=== PATIENT | female | born 1945 ===

== ENCOUNTER 2021-03-18 18:29 | Observation (INO) | payer OTHER, MEDICARE ==
[2021-03-18] MEDS ORDERED: LORazepam 2 MG/ML VIAL ONE (19:48)
[2021-03-18 19:50] LABS: Absolute Lymphocytes (CBC) 1.4 K/uL (0.7-4.9); Basophils % 0.6 % (0-1.3); Hematocrit 35.9 % (36.0-45.0); Lymphocytes % 19.1 % (15.3-44.8); MPV 7.9 fL (7.6-11.3); RBC Red Blood Cell Count 4.03 M/uL (3.86-4.86)
[2021-03-18 19:51] LABS: Protime INR 0.94
[2021-03-18] MEDS ORDERED: TETANUS & DIPHTHERIA TOX,ADULT 0.5 ML VIAL ONE (19:59)
--- NOTE | 2021-03-18 20:13 | RAD REPORT ---
EXAM DESCRIPTION: CT - Head C Spine [place] Aguiar - 03/18/2021 7:50 pm CLINICAL HISTORY: Head and neck injury with chest and abdominal pain status post fall. Head and neck pain . TECHNIQUE: Computed axial tomography of the head and cervical spine was obtained Computed axial tomography of the chest, abdomen and pelvis was obtained. 100 cc Isovue-300 was given intravenously coronal and sagittal reconstruction was performed. All CT scans are performed using dose optimization technique as appropriate and may include automated exposure control or mA/KV adjustment according to patient size. COMPARISON: None FINDINGS: Some images are degraded by patient motion artifact An intracranial bleed is not seen. The ventricles are normal in caliber. An extra-axial fluid collect ion is not noted. A cervical fracture is not seen. No dislocation is seen. A mediastinal hematoma is not noted. A pleural effusion is not present. A lung contusion is not seen. The liver, spleen, pancreas, adrenals, kidneys and bladder do not demonstrate a traumatic injury IMPRESSION: 1. No acute intracranial abnormality is seen 2. A cervical fracture is not visualized. If the patient continues have symptoms to suggest intracran ial/spinal cord pathology then MRI would be recommended. 3. No traumatic injury involving the chest, abdomen or pelvis is seen.
--- NOTE | 2021-03-18 20:19 | RAD REPORT ---
EXAM DESCRIPTION: CT - Facial Bones W/ Mpr - 03/18/2021 8:03 pm CLINICAL HISTORY: Facial injury status post fall with facial pain COMPARISON: None TECHNIQUE: Computed axial tomography of the face was obtained. Coronal and sagittal reconstruction w as performed. All CT scans are performed using dose optimization technique as appropriate and may include automated exposure control or mA/KV adjustment according to patient size. FINDINGS: Nasal soft tissue swelling Lucency within the nasal bone probably a nondisplaced fracture A TMJ dislocation is not noted. The globes are intact. Fluid within the sinuses is not seen. Mild chronic sinusitis IMPRESSION: Nondisplaced fracture nasal bone
[2021-03-18 20:23] LABS: Urine Blood Negative (Negative); Urine Glucose Negative (Negative); Urine Protein Negative (Negative); Urine pH 5.5 (5.0-7.0)
[2021-03-18] MEDS ORDERED: NA CHLORIDE 0.9% 250 ML ONE (20:25)
[2021-03-18] MEDS ORDERED: KETAMINE HCL 500 MG/5 ML VIAL ONE (20:25)
[2021-03-18] MEDS ORDERED: LEVETIRACETAM 500 MG/5 ML VIAL IV ONE (20:26)
[2021-03-18 20:48] LABS: Barbiturates NEGATIVE (NEGATIVE); Benzodiazepines NEGATIVE (NEGATIVE); Cocaine NEGATIVE (NEGATIVE); METHAMPHETAM NEGATIVE (NEGATIVE); Methadone NEGATIVE (NEGATIVE); Opiates NEGATIVE (NEGATIVE); Phencyclidine NEGATIVE (NEGATIVE); THC Cannibis POSITIVE (NEGATIVE)
--- NOTE | 2021-03-18 20:58 | RAD REPORT ---
EXAM DESCRIPTION: RAD - Pelvis - 03/18/2021 8:51 pm CLINICAL HISTORY: Pelvic pain status post injury FINDINGS: No fracture or dislocation is seen. If the patient continues to have symptoms to suggest an occult fracture then MRI would be recommended
[2021-03-18 21:54] LABS: ALT/SGPT 17 U/L (12-78); AST/SGOT 11 U/L (15-37); Albumin 3.4 g/dL (3.4-5.0); Alkaline Phosphatase 84 U/L (45-117); BUN Blood Urea Nitrogen 20 mg/dL (7-18); Bicarbonate 26 mmol/L (21-32); Bilirubin Direct 0.1 mg/dL (0-0.2); Bilirubin Total 0.4 mg/dL (0.2-1.0); Glucose Level 182 mg/dL (74-106); Potassium 3.5 mmol/L (3.5-5.1); Protein, Total 6.5 g/dL (6.4-8.2); Sodium Level 136 mmol/L (136-145); Troponin (Emerg Dept Use Only) < 0.02 ng/mL (0.0-0.045)
[2021-03-18] MEDS ORDERED: DERMABOND SKIN ADHESIVE TOP ONE (22:02)
--- NOTE | 2021-03-18 22:20 | ER ---
Nurse's Notes [facility] Name: Yasmine Horton Age: 75 yrs Sex: Female : 1945 Arrival Date: 03/18/2021 Time: 18:51 Bed 20 Private MD: France Lopez Diagnosis: Altered Mental Status Presentation: 03/18 18:51 Chief complaint: EMS states: 75 yr. old, A \T\ O x 4, was in the bathroom when she fell, rb3 time on the floor is unknown. Has a laceration on the back of her head and on the bridge of her nose. Care prior to arrival: Placed on backboard. Mechanism of Injury: Fall unknown if the pt was on the toilet or standing. 18:51 Acuity: PABLO 3 rb3 18:51 Method Of Arrival: EMS: [facility] rb3 19:00 Trauma event details: Injury occurred in the [facility], Injury occurred: rr5 [facility] house Injury occurred: March 18, 2021. 19:30 Coronavirus screen: At this time, the client does not indicate any symptoms associated rr5 with coronavirus-19. Ebola Screen: Patient negative for fever greater than or equal to 101.5 degrees Fahrenheit, and additional compatible Ebola Virus Disease symptoms Patient denies exposure to infectious person. Patient denies travel to an Ebola-affected area in the 21 days before illness onset. Initial Sepsis Screen: Does the patient meet any 2 criteria? No. Patient's initial sepsis screen is negative. Does the patient have a suspected source of infection? No. Patient's initial sepsis screen is negative. Risk Assessment: Do you want to hurt yourself or someone else? Patient reports no desire to harm self or others. Onset of symptoms was March 18, 2021. Trauma Activation: Alert Physician: ED Physician; Name: dr. blank; Notified At: 19:00; Arrived At: 19:00 Physician: General Surgeon; Name: ; Notified At: 19:00; Arrived At: Physician: Radiology; Name: ; Notified At: 19:00; Arrived At: Physician: Respiratory; Name: ; Notified At: 19:00; Arrived At: Physician: Lab; Name: ; Notified At: 19:00; Arrived At: Historical: - Allergies: 19:34 Beta-Blockers (Beta-Adrenergic Blocking Agts); rr5 - Home Meds: 18:42 trazodone 100 mg Oral tab [Active]; meloxicam 15 mg oral tab 1 tab once daily [Active]; rb3 amlodipine 5 mg tab [Active]; omeprazole 20 mg Oral cpDR [Active]; estradiol 0.5 mg Oral tab [Active]; losartan 50 mg oral tab [Active]; methylprednisolone 4 mg Oral tab [Active]; gabapentin 600 mg oral tab [Active]; zolpidem 10 mg Oral tab [Active]; phenytoin sodium extended 100 mg oral cap [Active]; zonisamide 100 mg oral cap [Active]; desvenlafaxine 100 mg oral Tb24 [Active]; pranipexole 1 mg [Active]; glimepiride 1 mg Oral tab [Active]; hydrochlorothiazide 12.5 mg Oral cap [Active]; Myrbetriq 50 mg oral Tb24 [Active]; clonidine HCl 0.1 mg Oral tab [Active]; - PMHx: 19:40 Diabetes - NIDDM; rr5 - PSHx: 18:42 Cholecystectomy; Hysterectomy; left elbow; rb3 - Immunization history:: Adult Immunizations unknown, Last tetanus immunization: > 10 years ago. - Social history:: Smoking status: unknown. Screenin:51 Abuse screen: Denies threats or abuse. rb3 19:30 Nutritional screening: No deficits noted. Tuberculosis screening: No symptoms or risk rr5 factors identified. Fall Risk Fall in past 12 months (25 points). IV access (20 points). Gait- Impaired (20 pts.). Total King Fall Scale indicates High Risk Score (45 or more points). Fall prevention measures have been instituted. Side Rails Up X 2 Placed Close to Nursing Station Frequent Obs/Assessments Occuring Family Present and informed to notify staff if the need to leave the bedside As available patient and family educated on Fall Prevention Program and Strategies. Primary Survey: 18:51 NO uncontrolled hemorrhage observed. A: The patient is alert. Breathing/Chest: rb3 Respiratory pattern: regular, Respiratory effort: spontaneous, unlabored, Chest inspection: symmetrical rise and fall of the chest. Circulation: Pulses: palpable right dorsalis pedis artery and left dorsalis pedis artery. Skin color: pink, Skin temperature: warm. Disability Alert. Exposure/Environment: There is no evidence of uncontrolled external bleeding. Obvious injury(ies) are noted at this time: Laceration to the back of her head and on the bridge of her nose. 19:50 Reassessment Airway Airway Patent Oxygen No O2 Oral cavity Clear +Gag reflex Trachea rr5 Midline Breathing/Chest Respiratory pattern Regular Respiratory effort Spontaneous Unlabored Breath sounds Clear Chest inspection Symmetrical Circulation Pulses Palpable Temperature Warm Dry Disability Alert. Secondary Survey: 18:51 HEENT: Head Other laceration on the back of her head and bridge of nose. rb3 Gastrointestinal: No deficits noted. : No deficits noted. Musculoskeletal: pt. currently on a backboard. EMS reports that the pt had ROM on scene. Assessment: 18:51 General: Appears uncomfortable, Behavior is cooperative, anxious. Pain: Complains of rb3 pain in right ankle, bilateral hips Pain currently is 10 out of 10 on a pain scale. Neuro: Level of Consciousness is awake, alert, obeys commands, Oriented to person, place, time, situation. Cardiovascular: Patient's skin is warm and dry. Respiratory: Airway is patent Respiratory effort is even, unlabored, Respiratory pattern is regular, symmetrical. GI: No signs and/or symptoms were reported involving the gastrointestinal system. : No signs and/or symptoms were reported regarding the genitourinary system. Derm: laceration noted to the back of her head and on the bridge of her nose. Musculoskeletal: Range of motion: intact in all extremities, per EMS report. Injury Description: Laceration sustained to back of head. 19:50 Reassessment: Patient appears in no apparent distress at this time. unable to do xray rr5 patient keeps on moving , provider informed. 20:10 Reassessment: stiffening of extremities noted approximate 5-10 seconds. ED provider rr5 aware with order made and carried out, hooked to oxygen, placed on upright/ side lying position. 21:30 Reassessment: Patient appears in no apparent distress at this time. C spine cleared, C rr5 collar removed by provider. 22:15 Reassessment: Patient appears in no apparent distress at this time. hospitalist at rr5 bedside for admission. daughter number [phone] (Prashanth). 22:30 Reassessment: Patient appears in no apparent distress at this time. episodes of rr5 confusion and drowsiness on and off. 23:30 Reassessment: Patient appears in no apparent distress at this time. went to restroom rr5 able to walk with assistance, patient is drowsy unsteady gait noted. 03/19 01:00 Reassessment: supervisor dry paste and charge nurse informed needs to have a sitter, patient rr5 getting out on bed, cancelled the admission in 4th floor. Vital Signs: 03/18 18:51 BP 159 / 96; Pulse 96; Resp 20; Temp 97.8; Pulse Ox 96% ; Pain 10/10; rb3 20:00 BP 126 / 70; Pulse 86; Resp 20; Pulse Ox 100% ; rr5 21:00 BP 136 / 80; Pulse 89; Resp 17; Pulse Ox 97% ; rr5 22:00 BP 141 / 89; Pulse 90; Resp 16; Pulse Ox 98% ; rr5 23:00 BP 155 / 95; Pulse 105; Resp 19; Pulse Ox 99% ; rr5 23:52 BP 130 / 70; Pulse 90; Resp 19; Pulse Ox 98% ; rr5 03/19 01:00 BP 151 / 95; Pulse 85; Resp 17; Temp 97.8; Pulse Ox 98% ; rr5 01:25 Weight 90.72 kg; Height 5 ft. 6 in. (167.64 cm); rr5 10:01 BP 132 / 71 LA Supine (auto/); Pulse 77; Pulse Ox 93% on R/A; mb4 12:23 BP 147 / 85 Supine (auto/); Pulse 77; Pulse Ox 91% on R/A; mb4 01:25 Body Mass Index 32.28 (90.72 kg, 167.64 cm) rr5 [place] Coma Score: 03/18 18:51 Eye Response: spontaneous(4). Verbal Response: oriented(5). Motor Response: obeys rb3 commands(6). Total: 15. 20:00 Eye Response: spontaneous(4). Verbal Response: confused(4). Motor Response: obeys rr5 commands(6). Total: 14. 21:00 Eye Response: spontaneous(4). Verbal Response: confused(4). Motor Response: obeys rr5 commands(6). Total: 14. 22:00 Eye Response: spontaneous(4). Verbal Response: confused(4). Motor Response: obeys rr5 commands(6). Total: 14. 23:00 Eye Response: spontaneous(4). Verbal Response: oriented(5). Motor Response: obeys rr5 commands(6). Total: 15. 23:52 Eye Response: spontaneous(4). Verbal Response: confused(4). Motor Response: obeys rr5 commands(6). Total: 14. 03/19 01:00 Eye Response: spontaneous(4). Verbal Response: confused(4). Motor Response: obeys rr5 commands(6). Total: 14. Trauma Score (Adult): 03/18 18:51 Eye Response: spontaneous(1); Verbal Response: confused(1); Motor Response: obeys rr5 commands(2); Systolic BP: > 89 mm Hg(4); Respiratory Rate: 10 to 29 per min(4); Jose Ramon Score: 14; Trauma Score: 12 20:00 Eye Response: spontaneous(1); Verbal Response: confused(1); Motor Response: obeys rr5 commands(2); Systolic BP: > 89 mm Hg(4); Respiratory Rate: 10 to 29 per min(4); Jose Ramon Score: 14; Trauma Score: 12 21:00 Eye Response: spontaneous(1); Verbal Response: confused(1); Motor Response: obeys rr5 commands(2); Systolic BP: > 89 mm Hg(4); Respiratory Rate: 10 to 29 per min(4); Jose Ramon Score: 14; Trauma Score: 12 22:00 Eye Response: spontaneous(1); Verbal Response: confused(1); Motor Response: obeys rr5 commands(2); Systolic BP: > 89 mm Hg(4); Respiratory Rate: 10 to 29 per min(4); Jose Ramon Score: 14; Trauma Score: 12 23:00 Eye Response: spontaneous(1); Verbal Response: confused(1); Motor Response: obeys rr5 commands(2); Systolic BP: > 89 mm Hg(4); Respiratory Rate: 10 to 29 per min(4); [place] Score: 14; Trauma Score: 12 23:52 Eye Response: spontaneous(1); Verbal Response: confused(1); Motor Response: obeys rr5 commands(2); Systolic BP: > 89 mm Hg(4); Respiratory Rate: 10 to 29 per min(4); Jose Ramon Score: 14; Trauma Score: 12 03/19 01:00 Eye Response: spontaneous(1); Verbal Response: confused(1); Motor Response: obeys rr5 commands(2); Systolic BP: > 89 mm Hg(4); Respiratory Rate: 10 to 29 per min(4); Jose Ramon Score: 14; Trauma Score: 12 ED Course: 03/18 18:51 Patient arrived in ED. rb3 18:51 Patient has correct armband on for positive identification. Bed in low position. Call rb3 light in reach. Side rails up X2. 18:54 Triage completed. rb3 19:03 Vivek Blank MD is Attending Physician. mh7 19:21 Foreign Smith, RN is Primary Nurse. rr5 19:30 Arm band placed on right wrist. rr5 19:30 Inserted saline lock: 20 gauge in right forearm, using aseptic technique. Blood rr5 collected. 19:35 Thermoregulation: warm blanket given to patient. rr5 19:50 CT Traumagram (Head C Spine CAP W Con) In Process Unspecified. EDMS 19:50 CT Facial Bones W/O Con In Process Unspecified. EDMS 20:10 Seizure precautions initiated. rr5 20:10 metal mover on. Pulse ox on. NIBP on. rr5 20:15 Straight cath inserted, using sterile technique, 16 Fr. Specimen obtained. rr5 20:51 XRAY Pelvis In Process Unspecified. EDMS 20:52 EKG done, by ED staff, reviewed by Vivek Blank MD. rr5 22:13 Assist provider with chest tube insertion Assist provider with laceration repair on rr5 nose that was 2.5 cm. or less using Dermabond. Set up tray. Performed by Vivek Blank MD Patient tolerated well. 22:18 Ricki Vásquez DO is Hospitalizing Provider. [facility] 03/19 01:27 Patient admitted, IV remains in place. intact, No redness/swelling at site. rr5 01:29 Patient maintains SpO2 saturation greater than 95% on room air. rr5 02:57 France Lopez MD is Private Physician. es 08:18 Primary Nurse role handed off by Foreign Smith, LINDY eb 09:15 Assisted to bedside commode. Assisted with dressing. Repositioned patient. mb4 09:15 Noise minimized. Lights dimmed. Verbal reassurance given. Head of bed elevated. mb4 Notified primary nurse of vital signs. 09:53 Verbal reassurance given. mb4 11:24 Repeat lab(s) drawn. by me, sent to lab. IV blood return with difficulty. . Flushed mb4 right forearm with 5 ml normal saline. 12:47 Radha Phelps, RN is Primary Nurse. rb3 15:50 No provider procedures requiring assistance completed. IV discontinued, intact, rb3 bleeding controlled, No redness/swelling at site. Pressure dressing applied. 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 Exp: rr5 04/11/2022. Lot #: [id number]. } Route: IM; Site: right deltoid; 21:45 Follow up: Response: No adverse reaction rr5 Intake: 21:00 IV: 100ml; Total: 100ml. rr5 03/19 01:28 PO: 0ml; Total: 100ml. rr5 Outcome: 03/18 22:19 Decision to Hospitalize by Provider. [facility] 22:30 Patient's length of stay in the Emergency Department was greater than 2 hours. rr5 03/19 01:27 Admitted to ER Hold. Please see [facility] for further documentation. rr5 Condition: stable Instructed on the need for admit. 15:50 Discharged to home via wheelchair, with family. rb3 15:50 Condition: stable 15:50 Discharge instructions given to patient, Instructed on discharge instructions, follow up and referral plans. medication usage, Demonstrated understanding of instructions, follow-up care, medications, Prescriptions given X 2. 16:03 Patient left the ED. Signatures: Dispatcher [employer] EDTea Patton Heather, RN RN Amber Wells Mackenzie mb4 Foreign Smith RN RN rr5 Vivek Blank MD MD [facility] Radha Phelps RN RN rb3 Corrections: (The following items were deleted from the chart) 03/18 18:51 [place] Score=15, Trauma Score=12, rb3 rr5 03/19 01:03/18 23:52 GCS: 15, rr5 rr5 03/19 01:03/18 23:52 Jose Ramon Score=15, Trauma Score=12, rr5 rr5 03/19 01:03/18 23:00 Jose Ramon Score=15, Trauma Score=12, rr5 rr5 03/19 01:03/18 22:00 Jose Ramon Score=15, Trauma Score=12, rr5 rr5 03/19 01:03/18 22:00 GCS: 15, rr5 rr5 03/19 01:03/18 21:00 Jose Ramon Score=15, Trauma Score=12, rr5 rr5 03/19 01:03/18 21:00 GCS: 15, rr5 rr5 03/19 01:03/18 20:00 Jose Ramon Score=15, Trauma Score=12, rr5 rr5 03/19 01:03/18 20:00 GCS: 15, rr5 rr5 03/19 11:28 11:24 Initial lab(s) drawn, by me, sent to lab. mb4 mb4
--- NOTE | 2021-03-18 22:20 | EDPHYS ---
Physician Documentation [facility] Name: Yasmine Horton Age: 75 yrs Sex: Female : 1945 Arrival Date: 03/18/2021 Time: 18:51 Bed 20 Private MD: France Lopez ED Physician Vivek Blank HPI: 03/18 19:58 This 75 yrs old Female presents to ER via EMS with complaints of Fall Injury. [facility] 19:58 Details of fall: The patient fell from an upright position, while walking. Onset: The [facility] symptoms/episode began/occurred just prior to arrival, today. Associated injuries: The patient sustained injury to the head, contusion, laceration, of the nose, pain, injury to the low back, pain, right hip, painful injury, right foot, painful injury. Severity of symptoms: At their worst the symptoms were moderate, earlier today, in the emergency department the symptoms have improved, moderately. Historical: - Allergies: 19:34 Beta-Blockers (Beta-Adrenergic Blocking Agts); rr5 - Home Meds: 18:42 trazodone 100 mg Oral tab [Active]; meloxicam 15 mg oral tab 1 tab once daily [Active]; rb3 amlodipine 5 mg tab [Active]; omeprazole 20 mg Oral cpDR [Active]; estradiol 0.5 mg Oral tab [Active]; losartan 50 mg oral tab [Active]; methylprednisolone 4 mg Oral tab [Active]; gabapentin 600 mg oral tab [Active]; zolpidem 10 mg Oral tab [Active]; phenytoin sodium extended 100 mg oral cap [Active]; zonisamide 100 mg oral cap [Active]; desvenlafaxine 100 mg oral Tb24 [Active]; pranipexole 1 mg [Active]; glimepiride 1 mg Oral tab [Active]; hydrochlorothiazide 12.5 mg Oral cap [Active]; Myrbetriq 50 mg oral Tb24 [Active]; clonidine HCl 0.1 mg Oral tab [Active]; - PMHx: 19:40 Diabetes - NIDDM; rr5 - PSHx: 18:42 Cholecystectomy; Hysterectomy; left elbow; rb3 - Immunization history:: Adult Immunizations unknown, Last tetanus immunization: > 10 years ago. - Social history:: Smoking status: unknown. ROS: 19:58 Constitutional: Negative for fever, chills, and weight loss, Eyes: Negative for injury, mh7 pain, redness, and discharge, Neck: Negative for injury, pain, and swelling, Cardiovascular: Negative for chest pain, palpitations, and edema, Respiratory: Negative for shortness of breath, cough, wheezing, and pleuritic chest pain, Abdomen/GI: Negative for abdominal pain, nausea, vomiting, diarrhea, and constipation, : Negative for injury, bleeding, discharge, and swelling, Psych: Negative for depression, anxiety, suicide ideation, homicidal ideation, and hallucinations, Allergy/Immunology: Negative for hives, rash, and allergies, Endocrine: Negative for neck swelling, polydipsia, polyuria, polyphagia, and marked weight changes, Hematologic/Lymphatic: Negative for swollen nodes, abnormal bleeding, and unusual bruising. Exam: 19:58 Eyes: Pupils equal round and reactive to light, extra-ocular motions intact. Lids and mh7 lashes normal. Conjunctiva and sclera are non-icteric and not injected. Cornea within normal limits. Periorbital areas with no swelling, redness, or edema. ENT: Nares patent. No nasal discharge, no septal abnormalities noted. Tympanic membranes are normal and external auditory canals are clear. Oropharynx with no redness, swelling, or masses, exudates, or evidence of obstruction, uvula midline. Mucous membranes moist. Neck: Trachea midline, no thyromegaly or masses palpated, and no cervical lymphadenopathy. Supple, full range of motion without nuchal rigidity, or vertebral point tenderness. No Meningismus. Chest/axilla: Normal chest wall appearance and motion. Nontender with no deformity. No lesions are appreciated. Cardiovascular: Regular rate and rhythm with a normal S1 and S2. No gallops, murmurs, or rubs. Normal PMI, no JVD. No pulse deficits. Respiratory: Lungs have equal breath sounds bilaterally, clear to auscultation and percussion. No rales, rhonchi or wheezes noted. No increased work of breathing, no retractions or nasal flaring. Abdomen/GI: Soft, non-tender, with normal bowel sounds. No distension or tympany. No guarding or rebound. No evidence of tenderness throughout. 19:58 Psych: Awake, alert, with orientation to person, place and time. Behavior, mood, and affect are within normal limits. 19:58 Constitutional: The patient appears in no acute distress, alert, awake, anxious. 19:58 Head/face: Noted is a laceration(s), that is superficial, of the nose. 19:58 Back: pain, that is mild, of the lumbar area, normal spinal alignment noted, CVA tenderness, is absent, vertebral tenderness, is appreciated at lumbar, muscle spasm, is not present. 19:58 Musculoskeletal/extremity: Extremities: noted in the right hip: pain, tenderness, ROM: intact in all extremities, Circulation is intact in all extremities. Sensation intact. Compartment Syndrome exam of affected extremity: is normal. no numbness, no tingling, no sensation deficit, no palor, no weak pulses, Joints: the right hip displays pain at rest, tenderness, Tendon exam: specific tendon testing normal through active and passive range of motion 19:58 Skin: 19:58 Neuro: Orientation: is normal, Mentation: is normal, Memory: is normal, Cranial nerves: grossly normal, Cerebellar function: is grossly normal, Motor: is normal, Sensation: is normal, Gait: not tested. seizure activity, grand mal type is displayed, brief. Vital Signs: 18:51 BP 159 / 96; Pulse 96; Resp 20; Temp 97.8; Pulse Ox 96% ; Pain 10/10; rb3 20:00 BP 126 / 70; Pulse 86; Resp 20; Pulse Ox 100% ; rr5 21:00 BP 136 / 80; Pulse 89; Resp 17; Pulse Ox 97% ; rr5 22:00 BP 141 / 89; Pulse 90; Resp 16; Pulse Ox 98% ; rr5 23:00 BP 155 / 95; Pulse 105; Resp 19; Pulse Ox 99% ; rr5 23:52 BP 130 / 70; Pulse 90; Resp 19; Pulse Ox 98% ; rr5 05/30 01:00 BP 151 / 95; Pulse 85; Resp 17; Temp 97.8; Pulse Ox 98% ; rr5 01:25 Weight 90.72 kg; Height 5 ft. 6 in. (167.64 cm); rr5 10:01 BP 132 / 71 LA Supine (auto/); Pulse 77; Pulse Ox 93% on R/A; mb4 12:23 BP 147 / 85 Supine (auto/); Pulse 77; Pulse Ox 91% on R/A; mb4 01:25 Body Mass Index 32.28 (90.72 kg, 167.64 cm) rr5 Austin Coma Score: 03/18 18:51 Eye Response: spontaneous(4). Verbal Response: oriented(5). Motor Response: obeys rb3 commands(6). Total: 15. 20:00 Eye Response: spontaneous(4). Verbal Response: confused(4). Motor Response: obeys rr5 commands(6). Total: 14. 21:00 Eye Response: spontaneous(4). Verbal Response: confused(4). Motor Response: obeys rr5 commands(6). Total: 14. 22:00 Eye Response: spontaneous(4). Verbal Response: confused(4). Motor Response: obeys rr5 commands(6). Total: 14. 23:00 Eye Response: spontaneous(4). Verbal Response: oriented(5). Motor Response: obeys rr5 commands(6). Total: 15. 23:52 Eye Response: spontaneous(4). Verbal Response: confused(4). Motor Response: obeys rr5 commands(6). Total: 14. 03/19 01:00 Eye Response: spontaneous(4). Verbal Response: confused(4). Motor Response: obeys rr5 commands(6). Total: 14. Trauma Score (Adult): 03/18 18:51 Eye Response: spontaneous(1); Verbal Response: confused(1); Motor Response: obeys rr5 commands(2); Systolic BP: > 89 mm Hg(4); Respiratory Rate: 10 to 29 per min(4); Jose Ramon Score: 14; Trauma Score: 12 20:00 Eye Response: spontaneous(1); Verbal Response: confused(1); Motor Response: obeys rr5 commands(2); Systolic BP: > 89 mm Hg(4); Respiratory Rate: 10 to 29 per min(4); Austin Score: 14; Trauma Score: 12 21:00 Eye Response: spontaneous(1); Verbal Response: confused(1); Motor Response: obeys rr5 commands(2); Systolic BP: > 89 mm Hg(4); Respiratory Rate: 10 to 29 per min(4); Jose Ramon Score: 14; Trauma Score: 12 22:00 Eye Response: spontaneous(1); Verbal Response: confused(1); Motor Response: obeys rr5 commands(2); Systolic BP: > 89 mm Hg(4); Respiratory Rate: 10 to 29 per min(4); Austin Score: 14; Trauma Score: 12 23:00 Eye Response: spontaneous(1); Verbal Response: confused(1); Motor Response: obeys rr5 commands(2); Systolic BP: > 89 mm Hg(4); Respiratory Rate: 10 to 29 per min(4); Jose Ramon Score: 14; Trauma Score: 12 23:52 Eye Response: spontaneous(1); Verbal Response: confused(1); Motor Response: obeys rr5 commands(2); Systolic BP: > 89 mm Hg(4); Respiratory Rate: 10 to 29 per min(4); Austin Score: 14; Trauma Score: 12 03/19 01:00 Eye Response: spontaneous(1); Verbal Response: confused(1); Motor Response: obeys rr5 commands(2); Systolic BP: > 89 mm Hg(4); Respiratory Rate: 10 to 29 per min(4); Austin Score: 14; Trauma Score: 12 MDM: 03/18 22:17 Differential diagnosis: abrasion, closed head injury, contusion, fracture, laceration, mh7 Seizure, Syncope, Altered Mental Status. Data reviewed: vital signs, nurses notes, EMS record, lab test result(s), cardiac enzymes, CBC, drug level(s), electrolytes, urinalysis, urine drug screen, EKG, radiologic studies, CT scan, plain films. Data interpreted: Pulse oximetry: on room air is 96 %. Interpretation: normal. Counseling: I had a detailed discussion with the patient and/or guardian regarding: the historical points, exam findings, and any diagnostic results supporting the discharge/admit diagnosis, the presence of at least one elevated blood pressure reading (>120/80) during this emergency department visit, lab results, radiology results, the need for further work-up and treatment in the hospital. Response to treatment: the patient's symptoms have mildly improved after treatment. 22:19 Patient medically screened. [facility] 03/18 19:21 Order name: Basic Metabolic Panel; Complete Time: 22:08 [facility] 03/18 19:21 Order name: CBC with Diff; Complete Time: 20:21 [facility] 03/18 19:21 Order name: Type And Screen; Complete Time: 20:59 [facility] 03/18 19:21 Order name: LFT's; Complete Time: 22:08 [facility] 03/18 19:21 Order name: Protime (+inr); Complete Time: 20:21 [facility] 03/18 19:21 Order name: Ptt, Activated; Complete Time: 20:21 [facility] 03/18 19:21 Order name: Troponin (emerg Dept Use Only); Complete Time: 22:08 [facility] 03/18 19:22 Order name: Acetaminophen; Complete Time: 22:08 [facility] 03/18 19:44 Order name: Glucose, Ancillary Testing [facility] 03/18 20:03 Order name: Dilantin; Complete Time: 20:59 [facility] 03/18 20:23 Order name: Urine Dipstick-Ancillary; Complete Time: 20:29 [facility] 03/18 20:23 Order name: UDS; Complete Time: 21:23 03/18 20:37 Order name: ETOH Level; Complete Time: 21:23 [facility] 03/18 19:21 Order name: XRAY Pelvis; Complete Time: 20:59 [facility] 03/18 21:54 Order name: AMMONIA [facility] 03/18 22:39 Order name: SARS-COV-2 RT PCR [facility] 03/19 05:00 Order name: CBC with Automated Diff [facility] 03/19 05:05 Order name: Hemoglobin A1c [facility] 03/19 05:08 Order name: Comprehensive Metabolic Panel [facility] 03/19 05:09 Order name: Troponin I [facility] 03/19 05:09 Order name: Lipid Profile [facility] 03/19 05:09 Order name: T4 Free [facility] 03/19 05:09 Order name: Magnesium [facility] 03/19 05:09 Order name: Thyroid Stimulating Hormone [facility] 03/19 05:30 Order name: ABO/RH no charge [facility] 03/19 07:41 Order name: Glucose, Ancillary Testing [facility] 03/19 11:50 Order name: Troponin I [facility] 03/19 12:34 Order name: Glucose, Ancillary Testing [facility] 03/18 19:21 Order name: CT Traumagram (Head C Spine CAP W Con); Complete Time: 20:21 [facility] 03/18 19:21 Order name: Labs collected and sent; Complete Time: 20:22 [facility] 03/18 19:21 Order name: EKG - Nurse/Tech; Complete Time: 23:47 [facility] 03/18 19:21 Order name: Urine Dipstick-Ancillary (obtain specimen); Complete Time: 23:47 [facility] 03/18 19:21 Order name: Hip Right 2 View XRAY [facility] 03/18 19:21 Order name: Foot Right 3 View XRAY [facility] 03/18 19:21 Order name: Femur Right XRAY [facility] 03/18 19:21 Order name: CT Facial Bones W/O Con; Complete Time: 20:21 [facility] 03/18 20:52 Order name: Straight Cath - Urine; Complete Time: 20:52 [facility] 03/18 22:03 Order name: Dermabond; Complete Time: 22:13 [facility] 03/18 22:03 Order name: Dressing - Wound; Complete Time: 22:13 [facility] 03/18 22:03 Order name: Gloves, Sterile; Complete Time: 22:13 [facility] 03/18 22:03 Order name: Setup Suture Tray; Complete Time: 22:13 rr5 Administered Medications: 19:32 Drug: Ativan (LORazepam) 0.5 mg Route: IVP; Site: right forearm; rr5 20:30 Follow up: Response: No adverse reaction rr5 20:10 Drug: Ativan (LORazepam) 1.5 mg Route: IVP; Site: right forearm; rr5 21:10 Follow up: Response: No adverse reaction rr5 20:25 Drug: Keppra (levETIRAcetam) 1000 mg Route: IV; Rate: calculated rate; Site: right rr5 forearm; 21:00 Follow up: Response: No adverse reaction; IV Status: Completed infusion; IV Intake: rr5 100ml 20:48 Drug: Tetanus-Diphtheria Toxoid Adult 0.5 ml {Offal Trimmer: [email or web address]. Exp: rr5 04/11/2022. Lot #: [id number]. } Route: IM; Site: right deltoid; 21:45 Follow up: Response: No adverse reaction rr5 Disposition: 03/18/21 22:19 Hospitalization ordered by Ricki Vásqeuz for Inpatient Admission. Preliminary diagnosis is Altered Mental Status. - Bed requested for [facility] ER HOLD. - Status is Inpatient Admission. hb - Condition is Stable. - Problem is new. - Symptoms have improved. Signatures: Dispatcher [employer] EDMS Jorge Reid, TOOL ROOM LATHE OPERATOR-C TOOL ROOM LATHE OPERATOR-Cla1 Grace De Souza, RN RN cg Jessica Quinn, LINDY ISRAEL Amber Wells Foreign Smith, LINYD RN rr5 Vivek Blank MD [facility]7 Radha Phelps, RN RN rb3 Corrections: (The following items were deleted from the chart) 20:19 20:12 Phenytoin (Dilantin) Level ordered. [facility] ED[facility] 21:59 21:42 CORONAVIRUS+MR.LAB.BRZ ordered. [facility] 03/19 00:25 03/18 22:19 Hospitalization Ordered by Ricki Vásquez DO for Inpatient Admission. Preliminary diagnosis is Altered Mental Status. Bed requested for Telemetry/MedSurg (Inpatient). Status is Inpatient Admission. Condition is Stable. Problem is new. Symptoms have improved. [facility] 03/19 00:42 00:25 03/18/2021 22:19 Hospitalization Ordered by Ricki Vásquez DO for Inpatient cg Admission. Preliminary diagnosis is Altered Mental Status. Bed requested for Telemetry/MedSurg (Inpatient). Status is Inpatient Admission. Condition is Stable. Problem is new. Symptoms have improved. 08:30 00:42 03/18/2021 22:19 Hospitalization Ordered by RickiTimoteo DONALD for Inpatient eb Admission. Preliminary diagnosis is Altered Mental Status. Bed requested for [facility] ER HOLD. Status is Inpatient Admission. Condition is Stable. Problem is new. Symptoms have improved. cg 09:16 08:30 03/18/2021 22:19 Hospitalization Ordered by Ricki Vásquez DO for Inpatient eb Admission. Preliminary diagnosis is Altered Mental Status. Bed requested for Telemetry/MedSurg (Inpatient). Status is Inpatient Admission. Condition is Stable. Problem is new. Symptoms have improved. eb 16:03 09:16 03/18/2021 22:19 Hospitalization Ordered by RickiTimoteo DONALD for Inpatient hb Admission. Preliminary diagnosis is Altered Mental Status. Bed requested for [facility] ER HOLD. Status is Inpatient Admission. Condition is Stable. Problem is new. Symptoms have improved. eb
--- NOTE | 2021-03-18 23:57 | P.HP ---
Certification for Inpatient Patient admitted to: Observation With expected LOS: <2 Midnights Patient will require the following post-hospital care: None Practitioner: I am a practitioner with admitting privileges, knowledge of patient current condition, hospital course, and medical plan of care. Services: Services provided to patient in accordance with Admission requirements found in Title 42 Section 412.3 of the Code of Federal Regulations Patient History Date of Service: 03/18/21 Primary Care Provider: Out of [facility] Reason for admission: Altered mental status History of Present Illness: 75-year-old female with history of seizure disorder, hypertension, diabetes, restless leg syndrome presents emergency department for unwitnessed fall. Patient is from [facility], visiting with family for family reunion, patient was normal getting in the car this morning but daughter reports that today she became more more not herself and had difficulty walking, appeared very uneasy on her feet. When patient got to the house she needed assistance getting to the bed, family told her to rest, about an hr and a half later when they went to check on her she is found on the bathroom floor groaning. EMS was called and patient was transferred to the emergency department, patient reportedly had some seizure-like activity with arm and leg stenting for about 10 seconds, patient was given Ativan. Daughter reports seizure history, patient prescribed Dilantin by her Dilantin level was 0, patient also tested positive for THC which daughter reports she has to take for restless leg syndrome but reportedly was not taking any more. CT head C-spine negative for any acute findings, labs unremarkable. Patient is still very drowsy after Ativan, daughter concerned that she is not acting herself throughout the day, ED provider wishes to admit under observation for altered mental status, possible seizure. 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 moist/pink Neck: Supple Respiratory: Clear to auscultation bilaterally Cardiovascular: No edema, Normal S1 S2 Capillary refill: <2 Seconds Gastrointestinal: Normal bowel sounds, No tenderness, No masses, No rebound, No guarding Musculoskeletal: No contractures, No erythema, No tenderness Integumentary: No tenderness/swelling, No erythema, No warmth Neurological: Other (Difficult to examine neurological a, patient is moving all 4 extremities, very drowsy/lethargic after receiving Ativan) - Studies Laboratory Data (last 24 hrs) 03/18/21 19:23: PT 10.8, INR 0.94, APTT 26.2 03/18/21 19:23: WBC 7.50, Hgb 12.4, Hct 35.9 L, Plt Count 259 03/18/21 19:23: Sodium 136, Potassium 3.5, BUN 20 H, Creatinine 0.81, Glucose 182 H, Total Bilirubin 0.4, AST 11 L, ALT 17, Alkaline Phosphatase 84 Assessment and Plan - Plan Assessment Unwitnessed fall/altered mental status Diabetes mellitus type 2 Hypertension Seizure disorder Restless leg syndrome Plan Unwitnessed fall/altered mental status: Patient is found the bathroom floor, unknown reason for fall, patient has been very unsteady on her feet throughout the day. Patient also had some seizure-like activity while in the emergency department, history of seizure disorder reportedly has not been taking her Dilantin, Dilantin level 0. Will restart home medications, consult Neurology, seizure precautions. Patient received 2 mg of Ativan while in the emergency department, at this time not able to do her neurological exam. Will minimize sedation throughout the evening so that an adequate exam can be performed. Patient lives at home with alone in [facility], daughter was present. Discuss case at length with daughter, patient likely benefit from additional assistance at home or even retirement when they get back home to [place], inform patient that this is not likely something we can arrange for but should be discussed with the primary care doctor upon return. DVT prophylaxis Lovenox 40 mg subcutaneous once daily. Diabetes mellitus type 2: A.c. HS Accu-Cheks, sliding scale insulin therapy. Hypertension: Obtain and continue home medications as appropriate. Seizure disorder: Obtain and continue home medications. Restless leg syndrome: Continue home medications keep sedation to minimum. Discharge Plan: Home Plan to discharge in: 24 Hours - Advance Directives Does patient have a Living Will: No Does patient have a Durable POA for Healthcare: No - Code Status/Comfort Care Code Status Assessed: Yes (Full code) Critical Care: No Time Spent Managing Pts Care (In Minutes): 55
[2021-03-19] MEDS ORDERED: ONDANSETRON 4 MG/2 ML VIAL IV PRN (01:22)
[2021-03-19] MEDS ORDERED: ACETAMINOPHEN 500 MG TAB PO PRN (01:22)
[2021-03-19 01:38] VITALS: BMI 32.3
[2021-03-19 04:55] LABS: Absolute Lymphocytes (CBC) 1.5 K/uL (0.7-4.9); Basophils % 0.6 % (0-1.3); Hematocrit 35.6 % (36.0-45.0); MPV 7.8 fL (7.6-11.3); RBC Red Blood Cell Count 4.01 M/uL (3.86-4.86)
[2021-03-19 05:08] LABS: ALT/SGPT 19 U/L (12-78); AST/SGOT 16 U/L (15-37); Albumin 3.3 g/dL (3.4-5.0); Alkaline Phosphatase 87 U/L (45-117); BUN Blood Urea Nitrogen 13 mg/dL (7-18); Bicarbonate 27 mmol/L (21-32); Bilirubin Total 0.5 mg/dL (0.2-1.0); Glucose Level 198 mg/dL (74-106); HDL Cholesterol 48 mg/dL (40-60); LDL Cholesterol, Calculated 112 (<130); Magnesium 2.3 mg/dL (1.8-2.4); Potassium 3.4 mmol/L (3.5-5.1); Protein, Total 6.1 g/dL (6.4-8.2); Sodium Level 139 mmol/L (136-145); Thyroid Stimulating Hormone 0.941 uIU/mL (0.360-3.740); Troponin I < 0.02 ng/mL (0.0-0.045)
[2021-03-19] MEDS ORDERED: POTASSIUM CL SA 10 MEQ TAB PO ONE ×2 (06:26→06:49)
[2021-03-19] MEDS: INSULIN -REGULAR HUMAN 50 UNIT/0.5 ML ML SQ SCH ×2 (07:30→11:30)
[2021-03-19] MEDS ORDERED: ACETAMINOPHEN 500 MG TAB ONE (07:53)
--- NOTE | 2021-03-19 08:54 | P.DS ---
Admission Date: 03/18/21 Discharge Date: 03/19/21 Primary Care Provider: Out of [facility] Disposition: ROUTINE DISCHARGE Discharge Condition: GOOD Reason for Admission: Altered mental status Consultations: Neurology(Phone consultation) Procedures: COVID: [Negative] Pelvic xray: CLINICAL HISTORY: Pelvic pain status post injury FINDINGS: No fracture or dislocation is seen. CT Scan Nasal region: FINDINGS: Nasal soft tissue swelling Lucency within the nasal bone probably a nondisplaced fracture A TMJ dislocation is not noted. The globes are intact. Fluid within the sinuses is not seen. Mild chronic sinusitis IMPRESSION: Nondisplaced fracture nasal bone CT Scan Head/Neck/Chest/Ab/Pelvis: COMPARISON: None FINDINGS: Some images are degraded by patient motion artifact An intracranial bleed is not seen. The ventricles are normal in caliber. An extra-axial fluid collection is not noted. A cervical fracture is not seen. No dislocation is seen. A mediastinal hematoma is not noted. A pleural effusion is not present. A lung contusion is not seen. The liver, spleen, pancreas, adrenals, kidneys and bladder do not demonstrate a traumatic injury IMPRESSION: 1. No acute intracranial abnormality is seen 2. A cervical fracture is not visualized. If the patient continues have symptoms to suggest intracranial/spinal cord pathology then MRI would be recommended. 3. No traumatic injury involving the chest, abdomen or pelvis is seen. Medical Problem List: Unwitnessed fall with altered mental status complicated with history of seizure disorder and noncompliance with medication Suspected nondisplaced fracture nasal bone Diabetes mellitus type 2 Hypertension GERD Depression Urinary incontinence DM Neuropathy Restless leg syndrome Brief History of Present Illness: 75-year-old female with history of seizure disorder, hypertension, diabetes, restless leg syndrome presents emergency department for unwitnessed fall. Patient is from [facility], visiting with family for family reunion, patient was normal getting in the car this morning but daughter reports that today she became more more not herself and had difficulty walking, appeared very uneasy on her feet. When patient got to the house she needed assistance getting to the bed, family told her to rest, about an hr and a half later when they went to check on her she is found on the bathroom floor groaning. EMS was called and patient was transferred to the emergency department, patient reportedly had some seizure-like activity with arm and leg stenting for about 10 seconds, patient was given Ativan. Daughter reports seizure history, patient prescribed Dilantin by her Dilantin level was 0, patient also tested positive for THC which daughter reports she has to take for restless leg syndrome but reportedly was not taking any more. CT head C-spine negative for any acute findings, labs unremarkable. CT nasal regions shows suspected nondisplaced nasal fracture. Patient was admitted for further observation Hospital Course: Patient presented with an unwitnessed fall and altered mental status. Patient is from [place] and visiting for a family reunion. Patient with history of seizure disorder but noncompliant. Patient was evaluated emergency room. CT head, neck, pelvis and chest were unremarkable for fracture. CT nasal region showed suspected nondisplaced nasal fracture. Patient has not been compliant with her Dilantin. Dilantin level subtherapeutic. Patient was positive for THC. Patient was started on Keppra. The patient was observed overnight. Case discussed at length with neurology. Patient has done well. No further seizures identified. At discharge neurology recommends to continue Keppra 500 mg 1 pill t wice daily. Discontinue Dilantin at this time. Patient will also go home with folic acid 1 mg daily. Patient will need to follow-up with her PCP within 1 week in [place]. Recommend to recheck Keppra level within 1 week. Patient will need neurology follow-up within 1 week as well. Seizure precautions to be continued. No driving, operating heavy machinery, swimming, or getting on any ladders. Education on seizures addressed in detail. Education on compliance with medication also provided. Prior to discharge I had a long discussion with the patient and family concerning compliance with her medication. Patient admitted that she is not taking her Dilantin. The plan will be to discontinue Dilantin and continue Keppra. I also recommended that she follow up with her neurologist later this week. I also counseled her extensively on THC cessation. Patient reported that she had use THC for her seizures. I told her specifically that she will need to get a prescription from her neurologist for medical marijuana if this is indicated. Patient understands. Physical therapy did work with the patient prior to discharge. They are recommending that the patient use a gait belt with assistance with family. Family was present when this was done. Patient also has a wheelchair that she uses. She will continue with this. Fall precaution in place. Compliance with current medications addressed in detail. As mentioned above patient with suspected nondisplaced fracture of the nasal bone. This can be monitored as an outpatient. Patient with history of diabetes mellitus type 2. Patient may resume her home medication-glimepiride 1 mg daily. Hold medication if blood sugar less than 100. Recommend to maintain blood sugars less than 140 fasting and less than 200 after meals. Further adjustment in medication may be required. This can be done with the help of her PCP. Recommend to recheck hemoglobin A1c every 3 months to monitor her progress. Recommend follow up with her PCP to further monitor and adjust medication. Patient with hypertension. At discharge patient will continue with her current medications-Norvasc 5 mg daily, clonidine 0.1 mg 3 times a day, losartan 50 mg 1 pill twice daily and hydrochlorothiazide 12.5 mg daily. Hold medication if blood pressure systolic less than 110. Recommend to maintain blood pressure less than 130/80. Further adjustment can be done by her PCP. Patient with restless leg syndrome. At discharge patient will continue with her current medication-Mirapex 1 mg 1 pill twice daily. Recommend follow up with neurology to further monitor and adjust medication. Patient with GERD. At discharge patient will continue with Prilosec daily.Recommend follow up with her PCP to further monitor and adjust medication. Patient with urinary incontinence. At discharge she will continue with Mybetriq daily.Recommend follow up with her PCP to further monitor and adjust medication. Patient with diabetic neuropathy. At discharge patient will continue with gabapentin 600 mg 3 times a day. Hold if with increase sedation. Patient also takes meloxicam. Recommend to discontinue meloxicam as this will increase risk for bleeding and GERD. Recommend follow up with her PCP to further monitor and adjust medication. Patient with depression. At discharge patient will continue with Desvenlafaxine 100 mg daily. Patient also takes trazodone 100 mg likely at bedtime. Recommend to hold trazodone if with increase sedation. Recommend follow up with her PCP to further monitor and adjust. Patient was positive for THC. THC education cessation provided. Vital Signs/Physical Exam: Temp Pulse Resp BP Pulse Ox 98 F 90 18 151/80 H 100 03/19/21 04:00 03/19/21 04:00 03/19/21 04:00 03/19/21 04:00 03/19/21 04:00 General: Alert, In no apparent distress, Oriented x3, Cooperative HEENT: Atraumatic Neck: Supple Respiratory: Clear to auscultation bilaterally, Normal air movement Cardiovascular: Normal pulses, Regular rate/rhythm Gastrointestinal: Normal bowel sounds, Soft and benign, Non-distended, No tenderness, No masses, No rebound, No guarding Musculoskeletal: No erythema, No tenderness, No warmth Integumentary: No tenderness/swelling Neurological: Normal speech, Normal strength at 5/5 x4 extr, Normal tone, Normal affect Laboratory Data at Discharge: WBC 8.00 K/uL (4.3-10.9) 03/19/21 04:25 Hgb 12.5 g/dL (12.0-15.0) 03/19/21 04:25 Hct 35.6 % (36.0-45.0) L 03/19/21 04:25 Plt Count 236 K/uL (152-406) 03/19/21 04:25 PT 10.8 SECONDS (9.5-12.5) 03/18/21 19:23 INR 0.94 03/18/21 19:23 APTT 26.2 SECONDS (24.3-36.9) 03/18/21 19:23 Sodium 139 mmol/L (136-145) 03/19/21 04:25 Potassium 3.4 mmol/L (3.5-5.1) L 03/19/21 04:25 BUN 13 mg/dL (7-18) 03/19/21 04:25 Creatinine 0.62 mg/dL (0.55-1.3) 03/19/21 04:25 Glucose 198 mg/dL (74-106) H 03/19/21 04:25 Magnesium 2.3 mg/dL (1.8-2.4) 03/19/21 04:25 Total Bilirubin 0.5 mg/dL (0.2-1.0) 03/19/21 04:25 AST 16 U/L (15-37) 03/19/21 04:25 ALT 19 U/L (12-78) 03/19/21 04:25 Alkaline Phosphatase 87 U/L (45-117) 03/19/21 04:25 Troponin I < 0.02 ng/mL (0.0-0.045) 03/19/21 04:25 Triglycerides 311 mg/dL (<150) H 03/19/21 04:25 Cholesterol 222 mg/dL (<200) H 03/19/21 04:25 HDL Cholesterol 48 mg/dL (40-60) 03/19/21 04:25 Cholesterol/HDL Ratio 4.63 03/19/21 04:25 Home Medications: Amlodipine [Norvasc*] 5 mg PO DAILY 03/19/21 Desvenlafaxine [Desvenlafaxine ER] 100 mg PO DAILY 03/19/21 Estradiol [Estrace] 0.5 tab PO BEDTIME 03/19/21 Folic Acid 1 mg PO DAILY #90 tablet 03/19/21 Gabapentin 600 mg PO TID* 03/19/21 Glimepiride 1 tab PO DAILY 03/19/21 Levetiracetam [Keppra] 500 mg PO BID #60 tablet 03/19/21 Losartan Potassium [Cozaar*] 50 mg PO BID 03/19/21 Mirabegron [Myrbetriq] 1 tab PO DAILY 03/19/21 Omeprazole 20 mg PO DAILY 03/19/21 Pramipexole [Mirapex*] 1 tab PO BID* 03/19/21 Trazodone [Desyrel*] 100 mg PO DAILY 03/19/21 cloNIDine HCL [Clonidine HCl] 1 tab PO Q8HR 03/19/21 hydroCHLOROthiazide [Hydrochlorothiazide*] 1 tab PO DAILY 03/19/21 New Medications: Folic Acid 1 mg PO DAILY #90 tablet Levetiracetam [Keppra] 500 mg PO BID #60 tablet Physician Discharge Instructions: Patient presented with an unwitnessed fall and altered mental status. Patient is from [place] and visiting for a family reunion. Patient with history of seizure disorder but noncompliant. Patient was evaluated emergency room. CT head, neck, pelvis and chest were unremarkable for fracture. CT nasal region showed suspected nondisplaced nasal fracture. Patient has not been compliant with her Dilantin. Dilantin level subtherapeutic. Patient was positive for THC. Patient was started on Keppra. The patient was observed overnight. Case discussed at length with neurology. Patient has done well. No further seizures identified. At discharge neurology recommends to continue Keppra 500 mg 1 pill twice daily. Discontinue Dilantin at this time. Patient will also go home with folic acid 1 mg daily. Patient will need to follow-up with her PCP within 1 week in [place]. Recommend to recheck Keppra level within 1 week. Patient will need neurology follow-up within 1 week as well. Seizure precautions to be continued. No driving, operating heavy machinery, swimming, or getting on any ladders. Education on seizures addressed in detail. Education on compliance with medication also provided. Prior to discharge I had a long discussion with the patient and family concerning compliance with her medication. Patient admitted that she is not taking her Dilantin. The plan will be to discontinue Dilantin and continue Keppra. I also recommended that she follow up with her neurologist later this week. I also counseled her extensively on THC cessation. Patient reported that she had use THC for her seizures. I told her specifically that she will need to get a prescription from her neurologist for medical marijuana if this is indicated. Patient understands. Physical therapy did work with the patient prior to discharge. They are recommending that the patient use a gait belt with assistance with family. Family was present when this was done. Patient also has a wheelchair that she uses. She will continue with this. Fall precaution in place. Compliance with current medications addressed in detail. As mentioned above patient with suspected nondisplaced fracture of the nasal bone. This can be monitored as an outpatient. Patient with history of diabetes mellitus type 2. Patient may resume her home medication-glimepiride 1 mg daily. Hold medication if blood sugar less than 100. Recommend to maintain blood sugars less than 140 fasting and less than 200 after meals. Further adjustment in medication may be required. This can be done with the help of her PCP. Recommend to recheck hemoglobin A1c every 3 months to monitor her progress. Recommend follow up with her PCP to further monitor and adjust medication. Patient with hypertension. At discharge patient will continue with her current medications-Norvasc 5 mg daily, clonidine 0.1 mg 3 times a day, losartan 50 mg 1 pill twice daily and hydrochlorothiazide 12.5 mg daily. Hold medication if blood pressure systolic less than 110. Recommend to maintain blood pressure less than 130/80. Further adjustment can be done by her PCP. Patient with restless leg syndrome. At discharge patient will continue with her current medication-Mirapex 1 mg 1 pill twice daily. Recommend follow up with neurology to further monitor and adjust medication. Patient with GERD. At discharge patient will continue with Prilosec daily.Recommend follow up with her PCP to further monitor and adjust medication. Patient with urinary incontinence. At discharge she will continue with Mybetriq daily.Recommend follow up with her PCP to further monitor and adjust medication. Patient with diabetic neuropathy. At discharge patient will continue with rose apentin 600 mg 3 times a day. Hold if with increase sedation. Patient also takes meloxicam. Recommend to discontinue meloxicam as this will increase risk for bleeding and GERD. Recommend follow up with her PCP to further monitor and adjust medication. Patient with depression. At discharge patient will continue with Desvenlafaxine 100 mg daily. Patient also takes trazodone 100 mg likely at bedtime. Recommend to hold trazodone if with increase sedation. Recommend follow up with her PCP to further monitor and adjust. Patient was positive for THC. THC education cessation provided. Diet: ADA Activity: Fall precautions Followup: NONE,NONE [Primary Care Provider] - Time spent managing pt's care (in minutes): 55
[2021-03-19] MEDS ORDERED: levETIRAcetam 500 MG in NA CHLORIDE 0.9% 100 ML IV SCH (09:00)
[2021-03-19] MEDS ORDERED: ENOXAPARIN 40 MG/0.4 ML SQ SCH (09:00)
[2021-03-19] MEDS ORDERED: ENOXAPARIN 40 MG/0.4 ML SQ ONE (10:10)
[2021-03-19 14:27] VITALS: BP 147/85; TEMP 98
[2021-03-19 16:45] VITALS: O2SAT 91
[2021-03-19] MEDS ORDERED: PRAMIPEXOLE 0.25 MG TAB PO SCH (21:00)
== END 2021-03-19 15:50 | disposition home or self-care (01) ==
LOC: ER 18:29 → ERHOLD 23:22
PROVIDERS: ADMIT Family Medicine; ATTEND Family Medicine
DX: R41.82 Altered mental status, unspecified (principal); G40.909 Epilepsy, unspecified, not intractable, without status epilepticus; Z91.14 Patient's other noncompliance with medication regimen; I10 Essential (primary) hypertension; K21.9 Gastro-esophageal reflux disease without esophagitis; F32.9 Major depressive disorder, single episode, unspecified; Z20.822 Contact with and (suspected) exposure to COVID-19; E11.40 Type 2 diabetes mellitus with diabetic neuropathy, unspecified; G25.81 Restless legs syndrome; Z79.84 Long term (current) use of oral hypoglycemic drugs; R32 Unspecified urinary incontinence; Z23 Encounter for immunization
CPT/HCPCS: 96365; 85025 ×2; 80048; 36415; 80320; 82140; 86900; 83735; 86850; 80329; 85610; 80061; 82565; 86901; 82947 ×3; 80076; 80307 ×8; 85730; 80185; 84443; 81003; 83036; 84484 ×3; 84439; 80053; 70450; 72125; 71260; 70486; 76377; 74177; 72170; 90471; 90714; 97116; 97161; 51702; 96375; 99285; U0003; Q9967; J1650; J1953 ×2; J7050; G0390

== ENCOUNTER 2021-03-20 04:57 | Emergency (ER) | payer OTHER, MEDICARE ==
[2021-03-20 07:10] LABS: Absolute Lymphocytes (CBC) 1.1 K/uL (0.7-4.9); Basophils % 0.6 % (0-1.3); Hematocrit 36.9 % (36.0-45.0); Lymphocytes % 16.9 % (15.3-44.8); MPV 7.4 fL (7.6-11.3); RBC Red Blood Cell Count 4.09 M/uL (3.86-4.86)
[2021-03-20] MEDS ORDERED: levETIRAcetam 1,000 MG in NA CHLORIDE 0.9% 100 ML IV ONE (08:00)
[2021-03-20 08:14] LABS: ALT/SGPT 20 U/L (12-78); AST/SGOT 16 U/L (15-37); Albumin 3.4 g/dL (3.4-5.0); Alkaline Phosphatase 92 U/L (45-117); BUN Blood Urea Nitrogen 12 mg/dL (7-18); Bicarbonate 26 mmol/L (21-32); Bilirubin Total 0.6 mg/dL (0.2-1.0); Glucose Level 187 mg/dL (74-106); Potassium 3.6 mmol/L (3.5-5.1); Protein, Total 6.7 g/dL (6.4-8.2); Sodium Level 140 mmol/L (136-145); Troponin (Emerg Dept Use Only) < 0.02 ng/mL (0.0-0.045)
--- NOTE | 2021-03-20 08:23 | ER ---
Nurse's Notes [facility] Name: Yasmine Horton Age: 75 yrs Sex: Female : 1945 Arrival Date: 03/20/2021 Time: 05:02 Bed 3 Private MD: Diagnosis: Epilepsy and recurrent seizures Presentation: 03/20 05:02 Chief complaint: EMS states: Toned out for unresponsive episode, upon arrival pt was ea alert, oriented and ambulatory. Pt denies hitting head reported she slid off the toilet, denied pain. Care prior to arrival: None. Mechanism of Injury: Fall toilet. Trauma event details: Injury occurred in the [facility], Injury occurred: at home. Injury occurred: March 20, 2021. 05:02 Acuity: PABLO 3 ea 05:02 Method Of Arrival: EMS: [facility] ea 05:09 Coronavirus screen: At this time, the client does not indicate any symptoms associated ea with coronavirus-19. Ebola Screen: No symptoms or risks identified at this time. Initial Sepsis Screen: Does the patient meet any 2 criteria? No. Patient's initial sepsis screen is negative. Does the patient have a suspected source of infection? No. Patient's initial sepsis screen is negative. Risk Assessment: Do you want to hurt yourself or someone else? Patient reports no desire to harm self or others. Trauma Activation: Alert Physician: ED Physician; Name: ; Notified At: ; Arrived At: Physician: General Surgeon; Name: ; Notified At: ; Arrived At: Physician: Radiology; Name: ; Notified At: ; Arrived At: Physician: Respiratory; Name: ; Notified At: ; Arrived At: Physician: Lab; Name: ; Notified At: ; Arrived At: Historical: - Allergies: 05:13 Beta-Blockers (Beta-Adrenergic Blocking Agts); ea - Home Meds: 05:13 zonisamide 100 mg Oral cap [Active]; meloxicam 15 mg Oral tab 1 tab once daily ea [Active]; methylprednisolone 4 mg Oral tab [Active]; amlodipine 5 mg tab [Active]; clonidine HCl 0.1 mg Oral tab [Active]; desvenlafaxine 100 mg Oral Tb24 [Active]; estradiol 0.5 mg Oral tab [Active]; gabapentin 600 mg Oral tab [Active]; glimepiride 1 mg Oral tab [Active]; hydrochlorothiazide 12.5 mg Oral cap [Active]; losartan 50 mg Oral tab [Active]; Myrbetriq 50 mg Oral Tb24 [Active]; omeprazole 20 mg Oral cpDR [Active]; phenytoin sodium extended 100 mg Oral cap [Active]; pranipexole 1 mg [Active]; trazodone 100 mg Oral tab [Active]; zolpidem 10 mg Oral tab [Active]; - PMHx: 05:13 Diabetes - NIDDM; ea - PSHx: 05:13 Hysterectomy; Cholecystectomy; left elbow; ea - Immunization history:: Adult Immunizations unknown. - Immunization history: Last tetanus immunization: unknown. - Social history:: Smoking status: unknown. - Family history:: not pertinent. - Hospitalizations: : The patient was recently seen at [facility]. Screenin:06 Abuse screen: Denies threats or abuse. Nutritional screening: No deficits noted. ea Tuberculosis screening: No symptoms or risk factors identified. Fall Risk None identified. Primary Survey: 05:07 NO uncontrolled hemorrhage observed. A: The patient is alert. Airway: patent. ea Breathing/Chest: Respiratory pattern: regular, Respiratory effort: spontaneous, unlabored. Circulation: Skin color: pink, Skin temperature: warm. Disability Alert. Exposure/Environment: No obvious injuries are noted at this time. 06:53 Reassessment Breathing/Chest Respiratory pattern Regular Respiratory effort Spontaneous ea Unlabored. Assessment: 05:13 General: Appears in no apparent distress. Behavior is calm, cooperative, appropriate ea for age. Pain: Denies pain. Neuro: Level of Consciousness is awake, alert, obeys commands, Oriented to person, place, time. Cardiovascular: Patient's skin is warm and dry. Respiratory: Airway is patent Respiratory effort is even, unlabored, Respiratory pattern is regular, symmetrical. Derm: Skin is pink, warm \T\ dry. 06:33 Reassessment: Patient and/or family updated on plan of care and expected duration. Pain ea level reassessed. Patient is alert, oriented x 3, equal unlabored respirations, skin warm/dry/pink. 07:00 Reassessment: RECD REPORT FROM [facility] [place]. 75YO WF S/P FALL. PT AOx4, NO APPARENT TRAUMA. bp 07:45 Reassessment: MEDS REQUESTED FROM PHARMACY. bp 08:50 Reassessment: Sister Heidi [phone] called for transportation. hb Vital Signs: 05:09 BP 159 / 97; Pulse 107; Resp 18; Temp 99.6; Pulse Ox 97% ; ea 07:30 BP 164 / 79; Pulse 96; Resp 16; Pulse Ox 95% ; bp [place] Coma Score: 05:07 Eye Response: spontaneous(4). Verbal Response: oriented(5). Motor Response: obeys ea commands(6). Total: 15. Trauma Score (Adult): 05:07 Eye Response: spontaneous(1); Verbal Response: oriented(1); Motor Response: obeys ea commands(2); Systolic BP: > 89 mm Hg(4); Respiratory Rate: 10 to 29 per min(4); Jose Ramon Score: 15; Trauma Score: 12 ED Course: 05:02 Patient arrived in ED. ea 05:04 Coleman Whitten MD is Attending Physician. tw4 05:06 Triage completed. ea 05:08 Patient maintains SpO2 saturation greater than 95% on room air. ea 05:08 Patient has correct armband on for positive identification. Placed in gown. Bed in low ea position. Call light in reach. Pulse ox on. NIBP on. 05:13 Thermoregulation: warm blanket given to patient. ea 05:13 Arm band placed on right wrist. Patient placed in an exam room, on a stretcher, on ea pulse oximetry. 06:49 Nigel Nesbitt RN is Primary Nurse. lp1 07:23 Attending Physician role handed off by Coleman Whitten MD rn 07:23 Luis Harrison MD is Attending Physician. rn 07:45 Inserted saline lock: 22 gauge in right forearm, using aseptic technique. Blood bp collected. 07:46 Antonio Kulkarni, LINDY is Primary Nurse. bp 08:50 No provider procedures requiring assistance completed. IV discontinued, intact, hb bleeding controlled, No redness/swelling at site. Administered Medications: 08:00 Drug: NS 0.9% 500 ml Route: IV; Rate: bolus; Site: right forearm; bp 08:57 Follow up: IV Status: Completed infusion; IV Intake: 500ml bp 08:00 Drug: Keppra (levETIRAcetam) 1000 mg Route: IV; Rate: calculated rate; Site: right bp forearm; 08:57 Follow up: IV Status: Completed infusion; IV Intake: 100ml bp Intake: 08:57 IV: 500ml; Total: 500ml. bp 08:57 IV: 100ml; Total: 600ml. bp Outcome: 08:23 Discharge ordered by . rn 08:50 Discharged to home ambulatory, with family. hb 08:50 Condition: stable 08:50 Discharge instructions given to patient, Instructed on discharge instructions, follow up and referral plans. medication usage, Demonstrated understanding of instructions, follow-up care, medications, Prescriptions given X 1. 11:01 Patient left the ED. ld1 Signatures: Luis Harrison MD MD rn Pena, Laura RN RN lp1 Jessica Quinn, RN RN Carin Norris, RN Antonio Conn ea, RN RN bp Coleman Whitten MD MD tw4 Mary Yanes, RN RN ld1
--- NOTE | 2021-03-20 08:23 | EDPHYS ---
Physician Documentation [facility] Name: Yasmine Horton Age: 75 yrs Sex: Female : 1945 Arrival Date: 03/20/2021 Time: 05:02 Bed 3 Private MD: ED Physician Luis Harrison HPI: 03/20 07:29 This 75 yrs old Unknown Female presents to ER via EMS with complaints of Fall Injury. rn 07:29 Details of fall: The patient fell from seated position. Onset: The symptoms/episode rn began/occurred just prior to arrival. Associated injuries: The patient sustained no obvious injury. Severity of symptoms: At their worst the symptoms were mild, in the emergency department the symptoms have improved. It is unknown whether or not the patient has had similar symptoms in the past. The patient has been recently seen by a physician: The patient has been recently been admitted at [facility]. Historical: - Allergies: 05:13 Beta-Blockers (Beta-Adrenergic Blocking Agts); ea - Home Meds: 05:13 zonisamide 100 mg Oral cap [Active]; meloxicam 15 mg Oral tab 1 tab once daily ea [Active]; methylprednisolone 4 mg Oral tab [Active]; amlodipine 5 mg tab [Active]; clonidine HCl 0.1 mg Oral tab [Active]; desvenlafaxine 100 mg Oral Tb24 [Active]; estradiol 0.5 mg Oral tab [Active]; gabapentin 600 mg Oral tab [Active]; glimepiride 1 mg Oral tab [Active]; hydrochlorothiazide 12.5 mg Oral cap [Active]; losartan 50 mg Oral tab [Active]; Myrbetriq 50 mg Oral Tb24 [Active]; omeprazole 20 mg Oral cpDR [Active]; phenytoin sodium extended 100 mg Oral cap [Active]; pranipexole 1 mg [Active]; trazodone 100 mg Oral tab [Active]; zolpidem 10 mg Oral tab [Active]; - PMHx: 05:13 Diabetes - NIDDM; ea - PSHx: 05:13 Hysterectomy; Cholecystectomy; left elbow; ea - Immunization history:: Adult Immunizations unknown. - Immunization history: Last tetanus immunization: unknown. - Social history:: Smoking status: unknown. - Family history:: not pertinent. - Hospitalizations: : The patient was recently seen at [facility]. ROS: 07:29 Constitutional: Negative for fever, chills, and weight loss, Eyes: Negative for injury, rn pain, redness, and discharge, ENT: Negative for injury, pain, and discharge, Neck: Negative for injury, pain, and swelling, Cardiovascular: Negative for chest pain, palpitations, and edema, Respiratory: Negative for shortness of breath, cough, wheezing, and pleuritic chest pain, Abdomen/GI: Negative for abdominal pain, nausea, vomiting, diarrhea, and constipation, Back: Negative for injury and pain, : Negative for injury, bleeding, discharge, and swelling, MS/Extremity: Negative for injury and deformity, Skin: Negative for injury, rash, and discoloration, Neuro: Negative for headache, weakness, numbness, tingling Exam: 07:29 Constitutional: This is a well developed, well nourished patient who is awake, alert, rn and in no acute distress. Head/Face: Normocephalic, atraumatic. Eyes: Pupils equal round and reactive to light, extra-ocular motions intact. Periorbital areas with no swelling, redness, or edema. ENT: dry MM Neck: Trachea midline, no masses palpated, and no cervical lymphadenopathy. Supple, full range of motion without nuchal rigidity, or vertebral point tenderness. No Meningismus. Cardiovascular: Regular rate and rhythm. No pulse deficits. Respiratory: No increased work of breathing, no retractions or nasal flaring. Abdomen/GI: soft, non-tender, no masses Skin: Warm, dry MS/ Extremity: Pulses equal, no cyanosis. Neurovascular intact. Full, normal range of motion. Equal circumference. Neuro: Awake and alert, GCS 15, oriented to person, place, time, and situation. Cranial nerves II-XII grossly intact. Motor strength 5/5 in all extremities. Sensory grossly intact. Vital Signs: 05:09 BP 159 / 97; Pulse 107; Resp 18; Temp 99.6; Pulse Ox 97% ; ea 07:30 BP 164 / 79; Pulse 96; Resp 16; Pulse Ox 95% ; bp Jose Ramon Coma Score: 05:07 Eye Response: spontaneous(4). Verbal Response: oriented(5). Motor Response: obeys ea commands(6). Total: 15. Trauma Score (Adult): 05:07 Eye Response: spontaneous(1); Verbal Response: oriented(1); Motor Response: obeys ea commands(2); Systolic BP: > 89 mm Hg(4); Respiratory Rate: 10 to 29 per min(4); [place] Score: 15; Trauma Score: 12 MDM: 05:39 Patient medically screened. tw 07:28 ED course: Signed out to me by Dr. Whitten, report is that patient had either seizure compliance administrator syncopal episode, is back to baseline, + recent admission for seizure, and patient denies any symptoms currently. Plan was to obtain cbc/bmp/trop, and if normal ok for discharge. . 08:21 Differential diagnosis: syncope, seizure. Data reviewed: vital signs, nurses notes, old rn medical records, lab test result(s), and as a result, I will discharge patient. Counseling: I had a detailed discussion with the patient and/or guardian regarding: the historical points, exam findings, and any diagnostic results supporting the discharge/admit diagnosis, lab results, the need for outpatient follow up, to return to the emergency department if symptoms worsen or persist or if there are any questions or concerns that arise at home. Response to treatment: the patient's condition has returned to base line, the patient is now symptom free, patient is well hydrated. and as a result, I will discharge patient. Special discussion: I discussed with the patient/guardian in detail that at this point there is no indication for admission to the hospital. It is understood, however, that if the symptoms persist or worsen the patient needs to return immediately for re-evaluation. Based on the history and exam findings, there is no indication for further emergent testing or inpatient evaluation. I discussed with the patient/guardian the need to see the neurologist for further evaluation of the symptoms. ED course: Pt is in middle of scheduling appt with neurology to figure out if she needs to be placed back on her keppra, told her likely given recent seizures. . 03/20 06:10 Order name: CBC with Diff; Complete Time: 07:21 ea 03/20 07:10 Order name: CMP; Complete Time: 08:16 03/20 07:11 Order name: Troponin (emerg Dept Use Only); Complete Time: 08:16 03/20 07:28 Order name: IV Start; Complete Time: 07:46 rn Administered Medications: 08:00 Drug: NS 0.9% 500 ml Route: IV; Rate: bolus; Site: right forearm; bp 08:57 Follow up: IV Status: Completed infusion; IV Intake: 500ml bp 08:00 Drug: Keppra (levETIRAcetam) 1000 mg Route: IV; Rate: calculated rate; Site: right bp forearm; 08:57 Follow up: IV Status: Completed infusion; IV Intake: 100ml bp Disposition: 03/20/21 08:23 Discharged to Home. Impression: Epilepsy and recurrent seizures. - Condition is Stable. - Discharge Instructions: Seizure, Adult. - Prescriptions for Keppra 750 mg Oral Tablet - take 1 tablet by ORAL route every 12 hours; 20 tablet. - Medication Reconciliation Form, Thank You Letter, Antibiotic Education, Prescription Opioid Use form. - Follow up: Private Physician; When: Upon discharge from the Emergency Department; Reason: Recheck today's complaints, Continuance of care, Re-evaluation by your physician. - Problem is new. - Symptoms have improved. Signatures: Dispatcher [employer] EDMS Luis Harrison MD MD rn Antunez, Elena, RN RN ea Peltier, Brian, RN RN bp Wadley, Terrence, MD MD tw4 Mary Yanes RN RN ld1 Corrections: (The following items were deleted from the chart) 07:30 07:29 Constitutional: Negative for fever, chills, and weight loss, Eyes: Negative for rn injury, pain, redness, and discharge, ENT: Negative for injury, pain, and discharge, Neck: Negative for injury, pain, and swelling, Cardiovascular: Negative for chest pain, palpitations, and edema, Respiratory: Negative for shortness of breath, cough, wheezing, and pleuritic chest pain, Abdomen/GI: Negative for abdominal pain, nausea, vomiting, diarrhea, and constipation, Back: Negative for injury and pain, : Negative for injury, bleeding, discharge, and swelling, MS/Extremity: Negative for injury and deformity, Skin: Negative for injury, rash, and discoloration, Neuro: Negative for headache, weakness, numbness, tingling, and seizure, rn 11:01 08:23 03/20/2021 08:23 Discharged to Home. Impression: Epilepsy and recurrent seizures. ld1 Condition is Stable. Discharge Instructions: Seizure, Adult. Prescriptions for Keppra 750 mg Oral Tablet - take 1 tablet by ORAL route every 12 hours; 20 tablet. and Forms are Medication Reconciliation Form, Thank You Letter, Antibiotic Education, Prescription Opioid Use. Follow up: Private Physician; When: Upon discharge from the Emergency Department; Reason: Recheck today's complaints, Continuance of care, Re-evaluation by your physician. Problem is new. Symptoms have improved. rn
[2021-03-20] MEDS ORDERED: NA CHLORIDE 0.9% 0 ML ONE (08:25)
[2021-03-20] MEDS ORDERED: NA CHLORIDE 0.9% 500 ML ONE (08:25)
[2021-03-20 11:07] VITALS: TEMP 99.6
[2021-03-20 11:10] VITALS: BP 164/79; O2SAT 95
--- NOTE | 2021-03-22 12:07 | EKG ---
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
== END 2021-03-20 11:01 | disposition home or self-care (01) ==
LOC: ER 04:57
DX: G40.802 Other epilepsy, not intractable, without status epilepticus (principal); E11.9 Type 2 diabetes mellitus without complications; W18.30XA Fall on same level, unspecified, initial encounter; Z88.8 Allergy status to other drugs, medicaments and biological substances
CPT/HCPCS: 96365; 93005; 85025; 36415; 84484; 80053; 99284; J1953; J7040; G0390; J7030